=== PATIENT | male | born 1975 | race Two or more races ===

== ENCOUNTER 2018-12-26 18:24 | Emergency (ER) | payer BC ==
[2018-12-26] MEDS ORDERED: ASPIRIN 81 MG TABLET, CHEWABLE PO ONE (18:58)
--- NOTE | 2018-12-26 19:00 | ER Document Report ---
ED Medical Screen (RME) - General Chief Complaint: Dizziness Stated Complaint: DIZZINESS Time Seen by Provider: 12/26/18 18:57 Primary Care Provider: BECKA WONG [Primary Care Provider] - Follow up as needed Mode of Arrival: Wheelchair Information source: Patient Notes: 43-year-old male presented to ED for left-sided chest pain just under his left breast. He states he has it every day for about an hour for the last 3 weeks. He states he also has dizziness nausea and vomiting for at least an hour after eating lunch each day. Patient is alert oriented respirations regular and unlabored speaking in full sentences walks with even steady gait. He states the only medical history he has is high blood pressure he does not smoke he drinks maybe every other week and does not do any recreational drugs. I have greeted and performed a rapid initial assessment of this patient. A comprehensive ED assessment and evaluation of the patient, analysis of test results and completion of medical decision making process will be conducted by an additional ED providers. Dictation of this chart was performed using voice recognition software; therefore, there may be some unintended grammatical errors. TRAVEL OUTSIDE OF THE [place] IN LAST 30 DAYS: No - Related Data Allergies/Adverse Reactions: No Known Allergies Allergy (Unverified 12/26/18 18:24) Physical Exam - Vital signs Vitals: Temp Pulse Resp BP Pulse Ox 98.3 F 65 13 147/84 H 98 12/26/18 18:47 12/26/18 18:47 12/26/18 18:47 12/26/18 18:47 12/26/18 18:47 Course - Vital Signs Vital signs: Temp Pulse Resp BP Pulse Ox 98.3 F 65 13 147/84 H 98 12/26/18 18:47 12/26/18 18:47 12/26/18 18:47 12/26/18 18:47 12/26/18 18:47 Doctor's Discharge - Discharge Referrals: BECKA WONG [Primary Care Provider] - Follow up as needed
[2018-12-26 19:27] LABS: ABSOLUTE EOSINOPHILS # (AUTO) 0.1 10^3/uL (0.0-0.6); ABSOLUTE LYMPHOCYTES (AUTO) 2.3 10^3/uL (0.5-4.7); ABSOLUTE MONOCYTES (AUTO) 0.7 10^3/uL (0.1-1.4); BASOPHILS % (AUTO) 0.5 % (0-2); EOSINOPHILS % (AUTO) 0.8 % (0-6); HEMATOCRIT 50.6 % (37.9-51.0); HEMOGLOBIN 17.2 g/dL (13.5-17.0); LYMPHOCYTES % (AUTO) 25.2 % (13-45); MEAN CORPUSCULAR HEMOGLOBIN 28.8 pg (27.0-33.4); MEAN CORPUSCULAR VOLUME 85 fl (80-97); MONOCYTES % (AUTO) 7.3 % (3-13); PLATELET COUNT 285 10^3/uL (150-450); RED BLOOD COUNT 5.98 10^6/uL (4.35-5.55); RED CELL DISTRIBUTION WIDTH 13.9 % (11.5-14.0); SEGMENTED NEUTROPHILS % (AUTO) 66.2 % (42-78); TOTAL CELLS COUNTED % (AUTO) 100 %; WHITE BLOOD COUNT 9.1 10^3/uL (4.0-10.5)
[2018-12-26 19:33] LABS: ALANINE AMINOTRANSFERASE 27 U/L (21-72); ALKALINE PHOSPHATASE 75 U/L (38-126); ANION GAP 12 (5-19); ASPARTATE AMINO TRANSFERASE 21 U/L (17-59); BILIRUBIN,DIRECT 0.4 mg/dL (0.0-0.4); BILIRUBIN,TOTAL 0.7 mg/dL (0.2-1.3); BLOOD UREA NITROGEN 16 mg/dL (7-20); CALCIUM 10.2 mg/dL (8.4-10.2); CARBON DIOXIDE 29 mmol/L (22-30); CHLORIDE 100 mmol/L (98-107); GLUCOSE 105 mg/dL (75-110); LIPASE 99.1 U/L (23-300); POTASSIUM 4.3 mmol/L (3.6-5.0); SODIUM 140.6 mmol/L (137-145); TOTAL PROTEIN 8.2 g/dL (6.3-8.2)
--- NOTE | 2018-12-26 19:33 | RADIOLOGY REPORT (SQ) ---
EXAM DESCRIPTION: CHEST 2 VIEWS COMPLETED DATE/TIME: 12/26/2018 7:20 pm REASON FOR STUDY: Chest pain every day for the last 3 weeks COMPARISON: None. EXAM PARAMETERS: NUMBER OF VIEWS: two views TECHNIQUE: Digital Frontal and Lateral radiographic views of the chest acquired. RADIATION DOSE: NA LIMITATIONS: none FINDINGS: LUNGS AND PLEURA: No opacities, masses or pneumothorax. No pleural effusion. MEDIASTINUM AND HILAR STRUCTURES: No masses or contour abnormalities. HEART AND VASCULAR STRUCTURES: Heart normal size. No evidence for failure. BONES: No acute findings. HARDWARE: None in the chest. OTHER: No other significant finding. IMPRESSION: NO ACUTE RADIOGRAPHIC FINDING IN THE CHEST. TECHNICAL DOCUMENTATION: JOB ID: [id number] [employer]- All Rights Reserved Reading location - IP/workstation name: [email or web address]
[2018-12-26 19:44] LABS: CREATINE KINASE MB 0.59 ng/mL (<4.55)
[2018-12-26 19:45] LABS: TROPONIN I < 0.012 ng/mL
[2018-12-26 20:09] LABS: APPEARANCE,URINE CLEAR; BILIRUBIN,URINE NEGATIVE (NEGATIVE); COLOR,URINE YELLOW; GLUCOSE, URINE NEGATIVE (NEGATIVE); KETONES,URINE NEGATIVE (NEGATIVE); LEUKOCYTE ESTERASE,URINE NEGATIVE (NEGATIVE); NITRITE,URINE NEGATIVE (NEGATIVE); PROTEIN,URINE NEGATIVE (NEGATIVE); URINE SPECIFIC GRAVITY 1.015; UROBILINOGEN,URINE NEGATIVE mg/dL (<2.0)
--- NOTE | 2018-12-26 20:17 | RADIOLOGY REPORT (SQ) ---
US ABDOMEN LIMITED HISTORY: Right upper quadrant pain. COMPARISON: None. TECHNIQUE: Grayscale and color Doppler imaging of the right upper quadrant was performed. FINDINGS: Increased echogenicity of the hepatic parenchyma with decreased through transmission and poor visualization of the portal triads, suggesting hepatic steatosis. Focal 1.8 cm area of echogenicity may represent focal fatty infiltration or hemangioma. The main portal vein has normal hepatopetal flow. No shadowing gallstones are seen. There is likely a tiny nonmobile nonshadowing polyp in the gallbladder lumen. No pericholecystic fluid or gallbladder wall thickening. The common bile duct is normal caliber. The visualized portions of the pancreas are unremarkable. No hydronephrosis or shadowing renal stones are identified. The right kidney is normal in size. The visualized portions of the IVC and aorta are patent. IMPRESSION: 1. No evidence of acute abdominal findings. 2. Query hepatic hemangioma with fatty infiltration. 3. Tiny gallbladder polyp. No gallstones.
--- NOTE | 2018-12-26 23:10 | ER Document Report ---
ED General - General Chief Complaint: Dizziness Stated Complaint: DIZZINESS Time Seen by Provider: 12/26/18 18:57 Primary Care Provider: CHANG HUMPHREYS MD [ACTIVE STAFF] - Follow up in 1 week Mode of Arrival: Wheelchair Notes: Patient is a 43-year-old male who presents with complaint of epigastric and left upper quadrant abdominal pain and some pain going into the left lower chest. He says is worse whenever he eats or drinks. Is been intermittent for approximately a month now. No difficulty breathing. No fevers. Nausea. Patient does not take any ibuprofen or Motrin. He does take Tylenol. He says that he eats spicy foods and always eats a lot of hot sauce with all his meals. He denies any history of gastritis or acid reflux. He is never had a upper GI endoscopy. He denies any blood in stool. No black or tarry stools. No blood in his emesis. TRAVEL OUTSIDE OF THE [place] IN LAST 30 DAYS: No - Related Data Allergies/Adverse Reactions: No Known Allergies Allergy (Unverified 12/26/18 18:24) Past Medical History - General Information source: Patient - Social History Smoking Status: Never Smoker Frequency of alcohol use: Occasional Drug Abuse: None Family History: Reviewed & Not Pertinent Patient has suicidal ideation: No Patient has homicidal ideation: No - Past Medical History Cardiac Medical History: Reports: Hx Hypertension Renal/ Medical History: Denies: Hx Peritoneal Dialysis Review of Systems - Review of Systems Notes: My Normal Review Basic REVIEW OF SYSTEMS: CONSTITUTIONAL : Denies fever, chills, or sweats. Denies recent illness. EENT: Denies eye, ear, throat, or mouth pain or symptoms. Denies nasal or sinus congestion. CARDIOVASCULAR: Left lower chest pain. RESPIRATORY: Denies cough, cold, or chest congestion. Denies shortness of breath, difficulty breathing, or wheezing. GASTROINTESTINAL: Upper quadrant abdominal pain. Nausea MUSCULOSKELETAL: Denies neck or back pain or joint pain or swelling. SKIN: Denies rash or skin lesions. NEUROLOGICAL: Denies altered mental status or loss of consciousness. Denies headache. Denies weakness or paralysis or loss of use of either side. Denies problems with gait or speech. Denies sensory or motor loss. PSYCHIATRIC: Denies anxiety or stress or depression. ALL OTHER SYSTEMS REVIEWED AND NEGATIVE. Physical Exam - Vital signs Vitals: Temp Pulse Resp BP Pulse Ox 98.3 F 65 13 147/84 H 98 12/26/18 18:47 12/26/18 18:47 12/26/18 18:47 12/26/18 18:47 12/26/18 18:47 - Notes Notes: General Appearance: Well nourished, alert, cooperative, no acute distress, no obvious discomfort. Vitals: reviewed, See vital signs table. Eyes: PERRL, EOMI, Conjuctiva clear Lungs: No wheezing, No rales, No rhonci, No accessory muscle use, good air exchange bilaterally. Heart: Normal rate, Regular rythm, No murmur, no rub Abdomen: Normal BS, soft, No rigidity, Mild LUQ abdominal tenderness to palpation, No guarding, no rebound, no abdominal masses, no organomegaly Extremities: good pulses in all extremities, no swelling or tenderness in the extremities, no edema. Skin: warm, dry, appropriate color, no rash Neuro: speech clear, oriented x 3, normal affect, responds appropriately to questions. Course - Re-evaluation Re-evalutation: 12/27/18 07:11 Patient symptoms seem consistent with gastritis or nonbleeding ulcer. He has left upper quadrant abdominal pain is worse whenever he eats or drinks. I do not suspect coronary disease as the patient's EKG is normal and his cardiac enzymes noticed any concerning findings. He has no fevers. Not any black or tarry stools. No vomiting of blood. I do not suspect him to have a bleeding ulcer. I encouraged him to stop using hot sauce and to avoid spicy foods and acidic foods. I encouraged him to start taking Pepcid or Zantac. I will refer him to GI. Encouraged to return to ER if he has worsening of symptoms or feels unwell. Patient agrees with plan and will be discharged home. Dictation of this chart was performed using voice recognition software; therefore, there may be some unintended grammatical errors. 12/27/18 07:12 - Vital Signs Vital signs: Temp Pulse Resp BP Pulse Ox 98.4 F 60 14 148/88 H 99 12/26/18 23:33 12/26/18 23:33 12/26/18 23:33 12/26/18 23:33 12/26/18 23:33 - Laboratory Result Diagrams: 12/26/18 17:45 12/26/18 17:45 Laboratory results interpreted by me: 12/26/18 17:45 RBC 5.98 H Hgb 17.2 H - EKG Interpretation by Me Additional EKG results interpreted by me: 12/26/18 23:10 EKG is reviewed and interpreted by me. EKG shows sinus rhythm with a rate of [address] segment elevation or depression. No ischemic T wave inversions. NM interval, QRS duration, QT intervals are within normal range. No old EKG available for comparison. Discharge - Discharge Clinical Impression: Dizziness Abdominal pain Qualifiers: Abdominal location: left upper quadrant Qualified Code(s): R10.12 - Left upper quadrant pain Condition: Good Disposition: HOME, SELF-CARE Additional Instructions: I suspect your pain with eating and dizziness is related to gastritis. This is irritation of the lining of the stomach. Please avoid eating spicy foods and hot sauce. Please take Pepcid or Zantac twice a day. You can buy this [id number]. If you continue to have symptoms after one week then you should make a follow-up appointment with a GI physician. I have provided the n umber to the local GI physician. His name is Dr. Humphreys. Please call his office to make an appointment. Please return to ER immediately if you have severe chest pain, difficulty breathing, severe abdominal pain, vomiting of blood, blood in your stool, or black or tarry stools. Referrals: CHANG HUMPHREYS MD [ACTIVE STAFF] - Follow up in 1 week
[2018-12-26 23:34] VITALS: BP 148/88
--- NOTE | 2018-12-27 08:05 | EKG REPORT ---
SEVERITY:- OTHERWISE NORMAL ECG - SINUS RHYTHM LEFT AXIS DEVIATION : Confirmed by: Arie Wilkes MD 27-Dec-2018 08:04:07
== END 2018-12-26 23:33 | disposition home or self-care (01) ==
LOC: ER 18:24
DX: R10.12 Left upper quadrant pain (principal); R10.812 Left upper quadrant abdominal tenderness; R10.13 Epigastric pain; R07.9 Chest pain, unspecified; R42 Dizziness and giddiness; I10 Essential (primary) hypertension; R11.0 Nausea
CPT/HCPCS: 36415; 71046; 76705; 80053; 81001; 82553; 83690; 84484; 85025; 93005; 93010; 99284